=== PATIENT | male | born 1960 | race Caucasian/White ===

== ENCOUNTER 2019-02-10 07:30 | Inpatient (IN) | payer BC, MEDICAID, OTHER ==
[~2019-02-10] VITALS: Ht 167.6 cm; Wt 105.5 kg
[2019-02-10] MEDS ORDERED: SODIUM CHLORIDE 0.9% 1,000ML IVBOLUS ONE (08:00)
--- NOTE | 2019-02-10 08:12 | NUR ---
first contact with pt. pt states "very sob, no energy since yesterday", chest pain last night and denies cp at this time. hx a-fib/chf. pt's aox4. resps even and unlabored. all monitors in place. call light within reach. ekg done at bedside by emt.
[2019-02-10 08:31] LABS: BASOPHILS # (AUTO) 0.03 x10^3/uL (0-0.1); BASOPHILS % (AUTO) 0 % (0-1); EOSINOPHILS # (AUTO) 0.48 x10^3/uL (0-0.4); EOSINOPHILS % (AUTO) 6 % (1-7); LYMPHOCYTES # (AUTO) 1.61 x10^3/uL (1-3.4); LYMPHOCYTES % (AUTO) 21 % (22-44); MD NO; MEAN CORPUSCULAR HEMOGLOBIN 30.4 pg (27.5-34.5); MEAN CORPUSCULAR HGB CONC 33.2 g/dL (33.2-36.2); MEAN CORPUSCULAR VOLUME 91.6 fL (81-97); MEAN PLATELET VOLUME 11.5 fL (7.4-10.4); MONOCYTES # (AUTO) 0.59 x10^3/uL (0.2-0.8); MONOCYTES % (AUTO) 8 % (2-9); NEUTROPHILS # (AUTO) 5.09 x10^3/uL (1.8-6.8); NEUTROPHILS % (AUTO) 65 % (42-75); PLATELET COUNT 194 x10^3/uL (130-400); RED BLOOD COUNT 5.76 x10^6/uL (4.38-5.82); RED CELL DISTRIBUTION WIDTH 13.3 % (9.4-14.8)
[2019-02-10 08:41] LABS: ALBUMIN 3.3 g/dL (3.4-5.0); ANION GAP 10 mmol/L (5-15); CALCIUM 8.7 mg/dL (8.5-10.1); CHLORIDE 89 mmol/L (98-107)
--- NOTE | 2019-02-10 08:41 | NUR ---
piv est by car gorman. ns bolus canceled by amado d/t chf. pt's aox4. resps even and unlabored. all monitors in place. call light within reach.
[2019-02-10 08:48] LABS: CREATININE 2.36 mg/dL (0.7-1.3)
--- NOTE | 2019-02-10 08:52 | NUR ---
PT STATES "I WANNA LEAVE D/T INSURANCE REASONS." EDMD AT BEDSIDE TO EXPLAIN AT THIS TIME.
--- NOTE | 2019-02-10 09:18 | NUR ---
PT STATES "I'M WORRIED ABOUT MY FINGER. ITS BLUEISH." EDMD NOTIFIED.
--- NOTE | 2019-02-10 09:32 | NUR ---
WARM BLANCKET/PILLOW GIVEN AT THIS TIME. PT'S AOX4. RESPS EVEN AND UNLABORED.
[2019-02-10 09:37] LABS: TROPONIN I 0.145 ng/mL (0.000-0.045)
--- NOTE | 2019-02-10 09:44 | NUR ---
BG 693/TROP 0.145. EDMD NOTIFIED.
[2019-02-10] MEDS ORDERED: ENOXAPARIN 100 MG/ML ONE (09:45)
[2019-02-10] MEDS ORDERED: ASPIRIN 81 MG TABLET CHEW ONE (09:48)
[2019-02-10] MEDS ORDERED: INSULIN SINGLE DOSE, ER SQ-INSULIN ONE (09:49)
--- NOTE | 2019-02-10 09:56 | NUR ---
PT MEDICATED PER EMAR. PT TOLERATED WELL.
[2019-02-10] MEDS ORDERED: INSULIN REGULAR 100 UNITS/ML, 3ML VIAL SQ-INSULIN ONE (10:00)
[2019-02-10] MEDS ORDERED: ENOXAPARIN 100 MG/ML SQ ONE ×2 (10:00→20:00)
[2019-02-10] MEDS ORDERED: ASPIRIN 81 MG TABLET CHEW PO ONE (10:00)
[2019-02-10] MEDS ORDERED: CLON0.1T22 PO (10:08)
[2019-02-10] MEDS ORDERED: BUME1TAB21 PO ×2 (10:09→10:14)
[2019-02-10] MEDS ORDERED: POTA20TA14 PO (10:10)
[2019-02-10] MEDS ORDERED: METF500T17 PO (10:10)
[2019-02-10] MEDS ORDERED: SILD100T PO (10:11)
[2019-02-10] MEDS ORDERED: AMLO-150 PO (10:11)
[2019-02-10] MEDS ORDERED: CARV6.252 PO (10:12)
[2019-02-10] MEDS ORDERED: AMIO200T42 PO (10:13)
[2019-02-10] MEDS ORDERED: CHLO50TA PO (10:14)
[2019-02-10] MEDS ORDERED: CEFTRIAXONE PMX 1GM/50ML 50 ML ONE (10:24)
[2019-02-10] MEDS ORDERED: CEFTRIAXONE PMX 1GM/50ML 50 ML IVPB ONE (10:30)
--- NOTE | 2019-02-10 10:30 | NUR ---
BG 543 AT THIS TIME.
--- NOTE | 2019-02-10 10:37 | NUR ---
ABX INFUSING AT THIS TIME AFTER BLOOD CULTURE X 2 TIMES. PT TOLERATED WELL.
[2019-02-10] MEDS ORDERED: POLYETHYLENE GLYCOL 17 GM PACKET PO PRN (11:00)
[2019-02-10] MEDS ORDERED: DEXTROSE 4 GM TAB.CHEW PO PRN (11:00)
[2019-02-10] MEDS ORDERED: HEPARIN 5,000 UNITS/ML, 1ML SQ SCH ×2 (11:00→22:00)
[2019-02-10] MEDS ORDERED: ONDANSETRON 2MG/ML, 2ML IVPush PRN (11:00)
[2019-02-10] MEDS ORDERED: GLUCAGON 1 MG IM PRN (11:00)
[2019-02-10] MEDS ORDERED: LABETALOL 5MG/ML, 20ML IVPush PRN (11:00)
[2019-02-10] MEDS ORDERED: DEXTROSE 50%, 50ML SYRINGE IVPush PRN (11:00)
[2019-02-10] MEDS ORDERED: DOCUSATE 100 MG CAPSULE PO PRN (11:00)
--- NOTE | 2019-02-10 11:09 | NUR ---
REPORT GIVEN TO LIBAN BRUNO. ALL QUESTIONS ANSWERED.
[2019-02-10 11:27] VITALS: BP 146/103
[2019-02-10] MEDS ORDERED: NICOTINE 7 MG/24 HR PATCH.TD24 ONE (11:32)
[2019-02-10] MEDS: NICOTINE 7 MG/24 HR PATCH.TD24 TD SCH (11:37)
[2019-02-10] MEDS ORDERED: HEPARIN 25,000 UNITS/500ML PMX 500 ML IV PRN ×2 (12:30)
[2019-02-10] MEDS ORDERED: HEPARIN 5,000 UNITS/ML, 1ML IV ONE ×2 (12:30→20:00)
[2019-02-10] MEDS ORDERED: HEPARIN 5,000 UNITS/ML, 1ML IV PRN ×2 (12:30→20:00)
[2019-02-10 12:44] LABS: CHOLESTEROL, TOTAL 254 mg/dL (140-239); TRIGLYCERIDES 884 mg/dL (50-200)
[2019-02-10 12:47] LABS: CHOL/HDL RATIO 8.2; HDL CHOL % 12 % (26-37); HDL CHOLESTEROL (DIRECT) 31 mg/dL (40-60); TROPONIN I 0.148 ng/mL (0.000-0.045)
[2019-02-10 12:47] LABS: HEMOGLOBIN A1C 11.7 % (4.2-6.3)
[2019-02-10] MEDS: AMOXICILLIN/CLAV 875-125MG TABLET PO SCH (13:03)
[2019-02-10] MEDS: INSULIN REGULAR 100 UNITS/ML, 3ML VIAL SQ-INSULIN SCH ×3 (13:03→21:00)
[2019-02-10 14:23] VITALS: BP 129/79
[2019-02-10] MEDS: ACETAMINOPHEN 325 MG TABLET PO PRN (14:27)
[2019-02-10] MEDS: GUAIFENESIN/DM 200-20MG, 10ML UDC PO PRN (14:27)
[2019-02-10 15:40] LABS: MICROSCOPIC AUTO
[2019-02-10 15:43] LABS: CULTURE INDICATED? NO
[2019-02-10 18:33] LABS: TROPONIN I 0.167 ng/mL (0.000-0.045)
[2019-02-10 20:00] VITALS: BP 129/78
[2019-02-10] MEDS ORDERED: PHARMACY MAY ADJ FOR RENAL FX MC PRN (20:00)
[2019-02-10] MEDS ORDERED: ATORVASTATIN 40 MG TABLET PO SCH (21:00)
[2019-02-10] MEDS: CARVEDILOL 6.25 MG TABLET PO SCH (21:01)
[2019-02-10] MEDS: SODIUM CHLORIDE FLUSH 10ML SYR IVF SCH (21:01)
[2019-02-10] MEDS: AMIODARONE 200 MG TABLET PO SCH (21:01)
[2019-02-10] MEDS: ENOXAPARIN 100 MG/ML SQ SCH (21:01)
[2019-02-11] MEDS: AMOXICILLIN/CLAV 875-125MG TABLET PO SCH ×2 (00:19→12:35)
[2019-02-11] MEDS: GUAIFENESIN/DM 200-20MG, 10ML UDC PO PRN (00:22)
[2019-02-11 00:37] LABS: TROPONIN I 0.192 ng/mL (0.000-0.045)
[2019-02-11 01:10] VITALS: BP 111/72
[2019-02-11] MEDS ORDERED: SODIUM CHLORIDE NASAL SPRAY 45ML BOTTLE NAS PRN (02:30)
[2019-02-11 05:19] LABS: BASOPHILS # (AUTO) 0.02 x10^3/uL (0-0.1); BASOPHILS % (AUTO) 0 % (0-1); EOSINOPHILS # (AUTO) 0.75 x10^3/uL (0-0.4); EOSINOPHILS % (AUTO) 9 % (1-7); LYMPHOCYTES # (AUTO) 2.32 x10^3/uL (1-3.4); LYMPHOCYTES % (AUTO) 29 % (22-44); MD NO; MEAN CORPUSCULAR HGB CONC 32.7 g/dL (33.2-36.2); MEAN CORPUSCULAR VOLUME 91.8 fL (81-97); MEAN PLATELET VOLUME 11.1 fL (7.4-10.4); MONOCYTES # (AUTO) 0.69 x10^3/uL (0.2-0.8); MONOCYTES % (AUTO) 9 % (2-9); NEUTROPHILS # (AUTO) 4.25 x10^3/uL (1.8-6.8); NEUTROPHILS % (AUTO) 53 % (42-75); PLATELET COUNT 187 x10^3/uL (130-400); RED BLOOD COUNT 6.19 x10^6/uL (4.38-5.82); RED CELL DISTRIBUTION WIDTH 13.5 % (9.4-14.8)
[2019-02-11 05:31] LABS: ALBUMIN 3.2 g/dL (3.4-5.0); ANION GAP 9 mmol/L (5-15); CALCIUM 9.1 mg/dL (8.5-10.1); CHLORIDE 91 mmol/L (98-107)
[2019-02-11 05:35] LABS: ALANINE AMINOTRANSFERASE 32 U/L (12-78); ALKALINE PHOSPHATASE 92 U/L (45-117); BILIRUBIN,TOTAL 0.9 mg/dL (0.2-1.0); CREATININE 2.05 mg/dL (0.7-1.3); TOTAL PROTEIN 7.5 g/dL (6.4-8.2)
[2019-02-11 07:22] VITALS: BP 128/90
[2019-02-11 09:04] VITALS: BP 111/78
[2019-02-11] MEDS: AMLODIPINE 5 MG TABLET PO SCH (09:08)
[2019-02-11] MEDS: INSULIN REGULAR 100 UNITS/ML, 3ML VIAL SQ-INSULIN SCH ×4 (09:08→22:18)
[2019-02-11] MEDS: AMIODARONE 200 MG TABLET PO SCH ×2 (09:08→21:59)
[2019-02-11] MEDS: CHLORDIAZEPOXIDE 25 MG CAPSULE PO SCH (09:08)
[2019-02-11] MEDS: CARVEDILOL 6.25 MG TABLET PO SCH ×2 (09:09→21:58)
[2019-02-11] MEDS: SODIUM CHLORIDE FLUSH 10ML SYR IVF SCH ×2 (09:09→22:18)
[2019-02-11] MEDS ORDERED: POTASSIUM CHLORIDE 20 MEQ TAB.ER.PRT ONE (09:15)
[2019-02-11] MEDS: ENOXAPARIN 100 MG/ML SQ SCH (09:17)
[2019-02-11] MEDS: ASPIRIN 81 MG TABLET EC PO SCH (09:18)
[2019-02-11] MEDS: POTASSIUM CHLORIDE 20 MEQ TAB.ER.PRT PO SCH ×2 (09:18→17:53)
[2019-02-11] MEDS: OXYcodone/APAP 5/325MG TABLET PO PRN ×3 (09:41→22:19)
[2019-02-11] MEDS: NICOTINE 7 MG/24 HR PATCH.TD24 TD SCH (11:47)
[2019-02-11] MEDS: INSULIN GLARGINE 100 UNITS/ML, PEN SQ-INSULIN SCH (12:28)
[2019-02-11 14:53] VITALS: BP 104/71
[2019-02-11 19:47] VITALS: BP 119/79
[2019-02-11] MEDS ORDERED: HEPARIN 25,000 UNITS/500ML PMX 500 ML IV PRN (21:00)
[2019-02-11] MEDS ORDERED: HEPARIN 5,000 UNITS/ML, 1ML IV PRN (21:00)
[2019-02-11] MEDS ORDERED: HEPARIN 5,000 UNITS/ML, 1ML IV ONE (21:00)
[2019-02-11] MEDS: FLUTICASONE NASAL SPRAY 16GM NAS SCH (21:56)
[2019-02-11] MEDS: ATORVASTATIN 40 MG TABLET PO SCH (21:59)
[2019-02-12 00:12] VITALS: BP 96/67
[2019-02-12] MEDS: AMOXICILLIN/CLAV 875-125MG TABLET PO SCH ×2 (01:51→13:52)
[2019-02-12] MEDS: OXYcodone/APAP 5/325MG TABLET PO PRN ×5 (02:39→21:03)
[2019-02-12] MEDS: GUAIFENESIN/DM 200-20MG, 10ML UDC PO PRN ×2 (04:33→17:22)
[2019-02-12 04:50] LABS: ANION GAP 9 mmol/L (5-15); CALCIUM 8.6 mg/dL (8.5-10.1); CHLORIDE 92 mmol/L (98-107); CREATININE 2.18 mg/dL (0.7-1.3)
[2019-02-12 08:14] VITALS: BP 109/77
[2019-02-12] MEDS: INSULIN REGULAR 100 UNITS/ML, 3ML VIAL SQ-INSULIN SCH ×4 (08:17→21:26)
[2019-02-12] MEDS: SODIUM CHLORIDE FLUSH 10ML SYR IVF SCH ×2 (08:18→21:03)
[2019-02-12] MEDS: FLUTICASONE NASAL SPRAY 16GM NAS SCH ×2 (08:19→21:03)
[2019-02-12] MEDS: CARVEDILOL 6.25 MG TABLET PO SCH ×2 (08:21→21:02)
[2019-02-12] MEDS: AMLODIPINE 5 MG TABLET PO SCH (08:22)
[2019-02-12] MEDS: AMIODARONE 200 MG TABLET PO SCH ×2 (08:22→21:02)
[2019-02-12] MEDS: INSULIN GLARGINE 100 UNITS/ML, PEN SQ-INSULIN SCH (08:23)
[2019-02-12] MEDS: CHLORDIAZEPOXIDE 25 MG CAPSULE PO SCH (08:26)
[2019-02-12] MEDS: ASPIRIN 81 MG TABLET EC PO SCH (08:30)
[2019-02-12] MEDS: APIXABAN 5 MG TABLET PO SCH ×2 (08:48→21:03)
[2019-02-12] MEDS: NICOTINE 7 MG/24 HR PATCH.TD24 TD SCH (11:00)
[2019-02-12] MEDS ORDERED: POTASSIUM CHLORIDE 20 MEQ TAB.ER.PRT PO ONE (12:00)
[2019-02-12 14:03] VITALS: BP 107/85
[2019-02-12] MEDS: POTASSIUM CHLORIDE 20 MEQ TAB.ER.PRT PO SCH (16:00)
[2019-02-12] MEDS ORDERED: MAGNESIUM SULFATE PMX 2GM/50ML 50 ML IV ONE (16:30)
[2019-02-12 20:30] VITALS: BP 106/64
[2019-02-12] MEDS: ATORVASTATIN 40 MG TABLET PO SCH (21:24)
[2019-02-13] MEDS: AMOXICILLIN/CLAV 875-125MG TABLET PO SCH ×2 (01:11→08:29)
[2019-02-13] MEDS: OXYcodone/APAP 5/325MG TABLET PO PRN ×3 (01:17→09:30)
[2019-02-13 02:59] VITALS: BP 145/94
[2019-02-13] MEDS: ACETAMINOPHEN 325 MG TABLET PO PRN (04:10)
[2019-02-13 05:08] LABS: BASOPHILS # (AUTO) 0.05 x10^3/uL (0-0.1); BASOPHILS % (AUTO) 1 % (0-1); EOSINOPHILS # (AUTO) 0.79 x10^3/uL (0-0.4); EOSINOPHILS % (AUTO) 11 % (1-7); LYMPHOCYTES # (AUTO) 2.34 x10^3/uL (1-3.4); LYMPHOCYTES % (AUTO) 34 % (22-44); MD NO; MEAN CORPUSCULAR HEMOGLOBIN 30.3 pg (27.5-34.5); MEAN CORPUSCULAR HGB CONC 32.8 g/dL (33.2-36.2); MEAN CORPUSCULAR VOLUME 92.2 fL (81-97); MEAN PLATELET VOLUME 11.3 fL (7.4-10.4); MONOCYTES # (AUTO) 0.77 x10^3/uL (0.2-0.8); MONOCYTES % (AUTO) 11 % (2-9); NEUTROPHILS # (AUTO) 2.95 x10^3/uL (1.8-6.8); NEUTROPHILS % (AUTO) 43 % (42-75); PLATELET COUNT 183 x10^3/uL (130-400); RED BLOOD COUNT 5.55 x10^6/uL (4.38-5.82); RED CELL DISTRIBUTION WIDTH 13.4 % (9.4-14.8)
[2019-02-13 05:17] LABS: ANION GAP 5 mmol/L (5-15); CALCIUM 8.6 mg/dL (8.5-10.1); CHLORIDE 98 mmol/L (98-107); CREATININE 2.13 mg/dL (0.7-1.3)
[2019-02-13] MEDS: ASPIRIN 81 MG TABLET EC PO SCH (05:23)
[2019-02-13 07:34] VITALS: BP 113/84
[2019-02-13] MEDS: INSULIN REGULAR 100 UNITS/ML, 3ML VIAL SQ-INSULIN SCH ×2 (08:26→11:29)
[2019-02-13] MEDS: SODIUM CHLORIDE FLUSH 10ML SYR IVF SCH (08:27)
[2019-02-13] MEDS: POTASSIUM CHLORIDE 20 MEQ TAB.ER.PRT PO SCH (08:27)
[2019-02-13] MEDS: CARVEDILOL 6.25 MG TABLET PO SCH (08:28)
[2019-02-13] MEDS: FLUTICASONE NASAL SPRAY 16GM NAS SCH (08:28)
[2019-02-13] MEDS: AMIODARONE 200 MG TABLET PO SCH (08:29)
[2019-02-13] MEDS: AMLODIPINE 5 MG TABLET PO SCH (08:29)
[2019-02-13] MEDS: APIXABAN 5 MG TABLET PO SCH (08:29)
[2019-02-13] MEDS: NICOTINE 7 MG/24 HR PATCH.TD24 TD SCH (08:30)
[2019-02-13] MEDS: CHLORDIAZEPOXIDE 25 MG CAPSULE PO SCH (08:37)
[2019-02-13] MEDS ORDERED: INSULIN GLARGINE 100 UNITS/ML, PEN SQ-INSULIN SCH (09:00)
[2019-02-13] MEDS ORDERED: APIX5TAB PO (10:08)
[2019-02-13] MEDS ORDERED: ATOR40TA78 PO (10:08)
[2019-02-13] MEDS ORDERED: ASPI81TA45 PO (10:08)
[2019-02-13] MEDS ORDERED: AMOX1TAB12 PO (10:08)
[2019-02-13] MEDS ORDERED: OXYC5TAB3 PO (11:34)
== END 2019-02-13 12:15 | disposition home or self-care (01) | DRG 291 ==
LOC: ED 08:47 → EDIP 10:23 → 5SO 11:18 → DCLOUNGE 02-13 12:07
PROVIDERS: ADMIT Hospitalist; ATTEND Internal Medicine
DX: I13.0 Hypertensive heart and chronic kidney disease with heart failure and stage 1 through stage 4 chronic kidney disease, or unspecified chronic kidney disease (principal); I50.43 Acute on chronic combined systolic (congestive) and diastolic (congestive) heart failure; N17.9 Acute kidney failure, unspecified; M87.045 Idiopathic aseptic necrosis of left finger(s); I75.012 Atheroembolism of left upper extremity; E87.2 Acidosis; I42.9 Cardiomyopathy, unspecified; I48.0 Paroxysmal atrial fibrillation; J01.90 Acute sinusitis, unspecified; J01.80 Other acute sinusitis; J44.9 Chronic obstructive pulmonary disease, unspecified; N18.3 Chronic kidney disease, stage 3 (moderate); I25.10 Atherosclerotic heart disease of native coronary artery without angina pectoris; E11.22 Type 2 diabetes mellitus with diabetic chronic kidney disease; F17.210 Nicotine dependence, cigarettes, uncomplicated; G47.33 Obstructive sleep apnea (adult) (pediatric); E11.65 Type 2 diabetes mellitus with hyperglycemia; E78.5 Hyperlipidemia, unspecified; Z53.20 Procedure and treatment not carried out because of patient's decision for unspecified reasons; F15.10 Other stimulant abuse, uncomplicated; Z80.42 Family history of malignant neoplasm of prostate; Z80.8 Family history of malignant neoplasm of other organs or systems; Z79.84 Long term (current) use of oral hypoglycemic drugs; Z79.899 Other long term (current) drug therapy; Z79.01 Long term (current) use of anticoagulants; Z91.19 Patient's noncompliance with other medical treatment and regimen
CPT/HCPCS: 36415; 71045; 76380; 76770; 80048; 80053; 80061; 81001; 82040; 82947; 82962; 83036; 83605; 83735; 83880; 84100; 84443; 84484; 85025; 85520; 87040; 93005; 93306; 93922; 93931; 96372; 96374; 99285; G0378; J0696; J1644; J1650; J1815; J3475